=== PATIENT | female | born 1985 | race Caucasian/White ===

== ENCOUNTER 2019-11-01 10:20 | Outpatient (CLI) | payer OTHER ==
[~2019-11-01 10:20] MED LIST: IRON325 MG PO; PRENATAL TABLE1 EAC2 PO; ZANTAC25 MG/1 ML; ZOFRAN4 MG/5 ML
== END 2019-11-01 10:21 | disposition home or self-care (01) ==
LOC: SONOGRAMA 10:20
DX: R59.1 Generalized enlarged lymph nodes (principal)

== ENCOUNTER 2021-05-28 12:17 | Outpatient (CLI) | payer OTHER | END 2021-05-28 12:22 | disposition home or self-care (01) | LOC: TOM 12:17 | PROVIDERS: ATTEND Otolaryngology Otology & Neurotology | DX: E04.8 Other specified nontoxic goiter (principal) ==

== ENCOUNTER 2021-06-18 12:26 | Outpatient (CLI) | payer OTHER | END 2021-06-18 12:30 | disposition home or self-care (01) | LOC: RAD 12:26 | PROVIDERS: ATTEND General Practice | DX: N20.0 Calculus of kidney (principal); M51.36 Other intervertebral disc degeneration, lumbar region; I73.89 Other specified peripheral vascular diseases ==

== ENCOUNTER 2021-07-01 10:22 | Outpatient (CLI) | payer OTHER | END 2021-07-01 10:24 | disposition home or self-care (01) | LOC: NUCLEAR 10:22 | PROVIDERS: ATTEND General Practice | DX: I73.9 Peripheral vascular disease, unspecified (principal); I87.2 Venous insufficiency (chronic) (peripheral) ==

== ENCOUNTER 2024-07-25 09:27 | Outpatient (CLI) | payer OTHER | END 2024-07-25 09:31 | disposition home or self-care (01) | LOC: SONOGRAMA 09:27 | PROVIDERS: ATTEND Obstetrics & Gynecology | DX: N60.09 Solitary cyst of unspecified breast (principal) ==